=== PATIENT | female | born 1985 | race Caucasian/White ===

== ENCOUNTER 2024-06-25 09:37 | Emergency (ER) | payer OTHER ==
[~2024-06-25] VITALS: Ht 160 cm; Wt 56.6 kg
[~2024-06-25 09:37] MED LIST: FIBER500 MG PO; PRENATAL VITAM1 EAC2 PO
--- OUTSIDE RECORDS SUMMARY | 2024-06-25 09:44 | XMS ---
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 - Patient eloped before treatment completed. - Patient with suicidal and/or homicidal ideations eloped. Details: Patient LWOB. CRITERIA MET - Group Notification CARE PROVIDERS -, [facility] Dentist: Medical Office Assistant Instructor [facility] PHONE: [phone] -[place]- Dentist: Medical Office Assistant Instructor [facility] PHONE: [phone] MARISABEL RODRIGUEZ Current PHONE: [phone] Rolando has no Care Guidelines for this patient. Dung VISIT COUNT (12 MO.) 1 MIKIE Marquez TOTAL 1 NOTE: Visits indicate total known visits. ED/UCC VISIT TRACKING (12 MO.) 06/25/2024 09:38 [facility] [place] TYPE: Emergency COMPLAINT: - VOMITING INPATIENT VISIT TRACKING (12 MO.) No inpatient visits to display in this time frame [email or web address]
[2024-06-25] MEDS ORDERED: SODIUM CHLORIDE 0.9% 1,000 ML IV PRN (09:45)
[2024-06-25] MEDS ORDERED: PANTOPRAZOLE SODIUM 40 MG/10 ML VIAL IV ONE (10:00)
[2024-06-25] MEDS ORDERED: LIDOCAINE & ANTACID 35 ML BTL PO ONE (10:00)
[2024-06-25] MEDS ORDERED: ondansetron HCL 4 MG/2 ML VIAL IV ONE (10:00)
[2024-06-25 10:22] LABS: BASOPHILS 0.3 % (0-2); HEMATOCRIT 32.5 % (35.0-50.0); HEMOGLOBIN 11.4 g/dL (12.0-18.0); LYMPHOCYTES 14.4 % (24-44); MCH 29.6 (27-36); MCV 84.5 fl (81-99); NEUTROPHILS 77.3 % (39-80); PLATELET COUNT 310 K/uL (140-440); RBC 3.84 M/ul (4.3-5.7); RDW 13.8 (10.5-15.0)
[2024-06-25 10:43] LABS: ALBUMIN 3.3 g/dL (3.4-5.0); ALBUMIN/GLOBULIN RATIO 0.8 (1.1-2.4); ANION GAP 16.5 (7-21); BILIRUBIN, TOTAL 0.9 ng/dL (0.2-1.0); CALCIUM 10.2 mg/dL (8.5-10.1); CREATININE, SERUM 0.5 mg/dL (0.55-1.02); MAGNESIUM 1.5 mg/dL (1.8-2.4); POTASSIUM 3.5 mmol/L (3.5-5.1); PROTEIN, TOTAL 7.4 g/dL (6.4-8.2)
[2024-06-25 10:48] LABS: LACTIC ACID, BLOOD 0.7 mmol/L (0.4-2.0)
[2024-06-25] MEDS ORDERED: ASPIRIN 81 MG CHEW PO ONE (11:00)
[2024-06-25] MEDS ORDERED: HEPARIN SOD,PORK IN 0.45% NACL 500 ML IV SCH (11:15)
[2024-06-25] MEDS ORDERED: HEParin SOD (PORCINE) 5,000 UNIT/ML VIAL IV ONE (11:15)
[2024-06-25 11:28] LABS: PARTIAL THROMBOPLASTIN TIME 27.1 Sec (22.9-41.3)
[2024-06-25 11:29] LABS: INR 1.05 (0.80-1.30)
[2024-06-25] MEDS ORDERED: PROPRANOLOL 1 MG/ML IV ONE (11:45)
[2024-06-25] MEDS ORDERED: METOCLOPRAMIDE HCL 10 MG/2 ML SDV IV ONE (12:15)
[2024-06-25] MEDS ORDERED: ESMOLOL HCL 100 MG/10 ML VIAL IV ONE ×2 (14:45→15:00)
[2024-06-25] MEDS ORDERED: HYDROCORTISONE SOD SUCCINATE 100 MG/2 ML VIAL IV ONE (14:45)
[2024-06-25] MEDS ORDERED: ESMOLOL HCL 250 ML IV SCH (14:45)
[2024-06-25] MEDS ORDERED: propylthiouraciL 50 MG TAB PO ONE (15:00)
[2024-06-25] MEDS ORDERED: droPERidol 5 MG/2 ML VIAL IV ONE (15:30)
[2024-06-25 18:58] VITALS: BP 139/72
[2024-06-26 20:34] LABS: TRIIODOTHYRONINE,FREE FREE T3 31.1 pg/mL (2.5-4.3)
--- NOTE | 2024-06-28 14:36 | EKG ---
[facility] [address] [facility] [place], [place] [address] Signed Sinus tachycardia Nonspecific T wave abnormality Abnormal ECG No previous ECGs available Confirmed by Heather Ruggiero MD ([id number]) on 06/28/2024 2:36:32 PM Electronically Signed By: HEATHER RUGGIERO DO 06/28/24 1436 PATIENT NAME: ALTAGRACIA PERDOMO Electrocardiogram DATE OF : 85 PHYSICIAN: HEATHER RUGGIERO DO REPORT #: [id number] REPORT IS CONFIDENTIAL AND NOT TO BE RELEASED WITHOUT AUTHORIZATION
--- NOTE | 2024-06-28 14:37 | EKG ---
[facility] [address] [facility] [place] [address] Signed Sinus tachycardia Nonspecific T wave abnormality Abnormal ECG When compared with ECG of 25-JUN-2024 10:53, (Unconfirmed) No significant change was found Confirmed by Lalo Ruggiero MD ([id number]) on 06/28/2024 2:37:10 PM Electronically Signed By: LALO RUGGIERO DO 06/28/24 1437 PATIENT NAME: ALTAGRACIA PERDOMO TIARRA Electrocardiogram DATE OF : [birth year] PHYSICIAN: LALO RUGGIERO DO REPORT #: [id number] REPORT IS CONFIDENTIAL AND NOT TO BE RELEASED WITHOUT AUTHORIZATION
--- NOTE | 2024-06-28 14:37 | EKG ---
[facility] [address] [facility] [place] [address] Signed Sinus tachycardia Nonspecific T wave abnormality Abnormal ECG No previous ECGs available Confirmed by Heather Ruggiero MD ([id number]) on 06/28/2024 2:36:47 PM Electronically Signed By: HEATHER RUGGIERO DO 06/28/24 1437 PATIENT NAME: ALTAGRACIA PERDOMO Electrocardiogram DATE OF : [birth year] PHYSICIAN: HEATHER RUGGIERO DO REPORT #: [id number] REPORT IS CONFIDENTIAL AND NOT TO BE RELEASED WITHOUT AUTHORIZATION
== END 2024-06-25 18:58 | disposition short-term general hospital (02) ==
LOC: ED 09:37
PROVIDERS: Emergency Medicine
DX: I21.4 Non-ST elevation (NSTEMI) myocardial infarction (principal); E05.90 Thyrotoxicosis, unspecified without thyrotoxic crisis or storm; D64.9 Anemia, unspecified; Z88.1 Allergy status to other antibiotic agents
CPT/HCPCS: 36415; 71046; 80053; 83605; 83690; 83735; 83880; 84439; 84443; 84481; 84484; 84703; 85025; 85610; 85730; 93005; 93010; 96361; 96374; 96375; 99285-25; A9270; J1644; J1720; J1790; J1800; J2405; J2470; J2765; J7030; U0002

== ENCOUNTER 2024-11-18 13:08 | Emergency (ER) | payer OTHER ==
[~2024-11-18] VITALS: Ht 160 cm; Wt 68.3 kg
--- OUTSIDE RECORDS SUMMARY | 2024-11-18 13:14 | XMS ---
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 Dung VISIT COUNT (12 MO.) 2 MIKIE Marquez TOTAL 2 NOTE: Visits indicate total known visits. ED/UCC VISIT TRACKING (12 MO.) 11/18/2024 13:08 MIKIE Segovia TYPE: Emergency COMPLAINT: - HEADACHE 06/25/2024 09:38 [facility] [place] TYPE: Emergency COMPLAINT: - VOMITING DIAGNOSES: - Allergy status to other antibiotic agents - Anemia, unspecified - Non-ST elevation (NSTEMI) myocardial infarction - Other chest pain - Thyrotoxicosis, unspecified without thyrotoxic crisis or storm INPATIENT VISIT TRACKING (12 MO.) 06/25/2024 22:09 [facility] TYPE: General Medicine DIAGNOSES: 44417. Thyrotoxicosis, unspecified with thyrotoxic crisis or storm 02273. Thyroid storm/NSTEMI 77525. Thyrotoxicosis, unspecified with thyrotoxic crisis or storm - Thyrotoxicosis, unspecified with thyrotoxic crisis or storm [email or web address]
[2024-11-18 13:49] LABS: BASOPHILS 0.9 % (0-2); EOSINOPHILS 2.4 % (0-6); HEMATOCRIT 39.7 % (35.0-50.0); HEMOGLOBIN 13.6 g/dL (12.0-18.0); LYMPHOCYTES 29.7 % (24-44); MCH 31.4 (27-36); MCHC 34.3 g/dl (30-36); MCV 91.5 fl (81-99); MONOCYTES 11.8 % (0-12); NEUTROPHILS 55.2 % (39-80); PLATELET COUNT 251 K/uL (140-440); RBC 4.33 M/ul (4.3-5.7); RDW 14.4 (10.5-15.0)
[2024-11-18 14:08] LABS: ALBUMIN 4.1 g/dL (3.4-5.0); ALBUMIN/GLOBULIN RATIO 1.28 (1.1-2.4); ANION GAP 16.4 (7-21); BILIRUBIN, TOTAL 0.2 mg/dL (0.2-1.0); BUN/CREATININE RATIO 15.87 (6.0-28.6); CALCIUM 8.7 mg/dL (8.5-10.1); CREATININE, SERUM 0.63 mg/dL (0.55-1.02); POTASSIUM 4.4 mmol/L (3.5-5.1); PROTEIN, TOTAL 7.3 g/dL (6.4-8.2); TSH, 3RD GENERATION 0.181 uIU/mL (0.358-3.740)
[2024-11-18] MEDS ORDERED: METOCLOPRAMIDE HCL 10 MG/2 ML SDV IV ONE (14:15)
[2024-11-18] MEDS ORDERED: KETOROLAC TROMETHAMINE 15 MG/ML VIAL IV ONE (14:15)
[2024-11-18] MEDS ORDERED: REGLAN10 MG PO (14:55)
[2024-11-18 15:05] VITALS: BP 100/67
[2024-11-18] MEDS ORDERED: PROPRANOLOL HCL20 MG PO (15:05)
[2024-11-18] MEDS ORDERED: METHIMAZOLE10 MG PO (15:05)
--- NOTE | 2024-11-19 22:33 | EKG ---
[facility] [address] [place] [address] Signed Sinus bradycardia Otherwise normal ECG When compared with ECG of 25-JUN-2024 14:11, Vent. rate has decreased BY 77 BPM T wave inversion no longer evident in Inferior leads Nonspecific T wave abnormality no longer evident in Lateral leads Confirmed by Kirsten Leigh MD () on 11/19/2024 10:33:00 PM Electronically Signed By: KIRSTEN LEIGH MD 11/19/242232 PATIENT NAME: ALTAGRACIA PERDOMO Electrocardiogram DATE OF : [birth year] PHYSICIAN: KIRSTEN LEIGH MD REPORT #: [id number] REPORT IS CONFIDENTIAL AND NOT TO BE RELEASED WITHOUT AUTHORIZATION
== END 2024-11-18 15:07 | disposition home or self-care (01) ==
LOC: ED 13:08
PROVIDERS: Emergency Medicine
DX: R51.9 Headache, unspecified (principal); E05.90 Thyrotoxicosis, unspecified without thyrotoxic crisis or storm
CPT/HCPCS: 36415; 80053; 84443; 84484; 85025; 93005; 93010; 96374; 96375; 99283-25; J1885; J2765

== ENCOUNTER 2025-02-28 05:54 | Emergency (ER) | payer OTHER ==
[~2025-02-28] VITALS: Ht 160 cm; Wt 67.2 kg
[~2025-02-28 05:54] MED LIST changes: +METHIMAZOLE10 MG PO; +PROPRANOLOL HCL20 MG PO; +REGLAN10 MG PO
--- OUTSIDE RECORDS SUMMARY | 2025-02-28 06:01 | XMS ---
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 Dung VISIT COUNT (12 MO.) 3 MIKIE Marquez TOTAL 3 NOTE: Visits indicate total known visits. ED/UCC VISIT TRACKING (12 MO.) 02/28/2025 05:55 [facility] TYPE: Emergency COMPLAINT: - ABNORMAL LAB RESULTS 11/18/2024 13:08 [facility] TYPE: Emergency COMPLAINT: - HEADACHE DIAGNOSES: - Headache, unspecified - Thyrotoxicosis, unspecified without thyrotoxic crisis or storm 06/25/2024 09:38 [facility] TYPE: Emergency COMPLAINT: - VOMITING DIAGNOSES: - Allergy status to other antibiotic agents - Anemia, unspecified - Non-ST elevation (NSTEMI) myocardial infarction - Other chest pain - Thyrotoxicosis, unspecified without thyrotoxic crisis or storm INPATIENT VISIT TRACKING (12 MO.) 06/25/2024 22:09 [facility] TYPE: General Medicine DIAGNOSES: 11424. Thyrotoxicosis, unspecified with thyrotoxic crisis or storm 65090. Thyroid storm/NSTEMI 23906. Thyrotoxicosis, unspecified with thyrotoxic crisis or storm - Thyrotoxicosis, unspecified with thyrotoxic crisis or storm [email or web address]
[2025-02-28 06:23] LABS: BASOPHILS 0.2 % (0.1-1.2); EOSINOPHILS 2.5 % (0.7-5.8); LYMPHOCYTES 30.3 % (19.3-51.7); MCH 28.5 PG (25.6-32.2); MCHC 33.4 g/dL (32.2-35.5); MCV 85.4 fL (79.4-94.8); MONOCYTES 14.5 % (4.7-12.5); NEUTROPHILS 52.3 % (34.0-71.1); RBC 4.24 M/uL (3.93-5.22)
[2025-02-28 06:57] LABS: ALT (SGPT) 43.0 U/L (14-59); AST (SGOT) 19.0 U/L (15-37); GLOMERULAR FILTRATION RATE,EST 124.0 mL/min (>60); PROTEIN, TOTAL 6.9 g/dL (6.4-8.2); UREA NITROGEN 10.0 mg/dL (7-18)
[2025-02-28 07:21] VITALS: BP 118/58
[2025-02-28 07:38] LABS: BLOOD/HGB, URINE NEGATIVE (Negative); KETONE, URINE NEGATIVE (Negative); LEUK ESTERASE, URINE NEGATIVE (negative); NITRITE, URINE NEGATIVE (negative)
[2025-02-28 07:44] LABS: EPITHELIAL CELLS, URINE SQUAMOUS 1+ /lpf (0-1+)
[2025-02-28 07:45] LABS: BACTERIA, URINE NONE SEEN /hpf (negative); CASTS, URINE NONE SEEN \\lpf; CRYSTALS, URINE NONE SEEN (0-1+); REFLEX CULTURE, URINE No (No)
--- NOTE | 2025-03-02 09:58 | EKG ---
[facility] [address] [place] [address] Signed Normal sinus rhythm Normal ECG When compared with ECG of 18-NOV-2024 14:14, Vent. rate has increased BY 35 BPM QT has lengthened Confirmed by John Carter MD ([id number]) on 03/02/2025 9:58:27 AM Electronically Signed By: JOHN CARTER MD 03/02/25 0958 PATIENT NAME: ALTAGRACIA PERDOMO Electrocardiogram DATE OF : [birth year] PHYSICIAN: JOHN CARTER MD REPORT #: [id number] REPORT IS CONFIDENTIAL AND NOT TO BE RELEASED WITHOUT AUTHORIZATION
== END 2025-02-28 07:21 | disposition home or self-care (01) ==
LOC: ED 05:54
PROVIDERS: Internal Medicine
DX: R94.4 Abnormal results of kidney function studies (principal); Z88.8 Allergy status to other drugs, medicaments and biological substances; Z79.899 Other long term (current) drug therapy
CPT/HCPCS: 36415; 80053; 81001; 83880; 84484; 84703; 85025; 93005; 93010; 99283

== ENCOUNTER 2025-06-23 06:20 | Emergency (ER) | payer OTHER ==
[~2025-06-23] VITALS: Ht 160 cm; Wt 62.6 kg
--- OUTSIDE RECORDS SUMMARY | 2025-06-23 06:27 | XMS ---
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 EAntonio VISIT COUNT (12 MO.) Andi Marquez TOTAL 4 NOTE: Visits indicate total known visits. ED/UCC VISIT TRACKING (12 MO.) 06/23/2025 06:20 [facility] TYPE: Emergency COMPLAINT: - VOMITING 02/28/2025 05:55 [facility] TYPE: Emergency COMPLAINT: - ABNORMAL LAB RESULTS DIAGNOSES: - Abnormal results of kidney function studies - Allergy status to other antibiotic agents - Allergy status to other drugs, medicaments and biological substances - Cardiac murmur, unspecified - Other mcfp (current) drug therapy - Tachycardia, unspecified 11/18/2024 13:08 [facility] [place] TYPE: Emergency [...] INPATIENT VISIT TRACKING (12 MO.) 06/25/2024 22:09 [facility] TYPE: General Medicine DIAGNOSES: 42530. Thyrotoxicosis, unspecified with thyrotoxic crisis or storm 61934. Thyroid storm/NSTEMI 29353. Thyrotoxicosis, unspecified with thyrotoxic crisis or storm - Thyrotoxicosis, unspecified with thyrotoxic crisis or storm [email or web address]
[2025-06-23] MEDS ORDERED: SODIUM CHLORIDE 0.9% 1,000 ML IV SCH (06:45)
[2025-06-23 06:56] LABS: BASOPHILS 0.3 % (0.1-1.2); EOSINOPHILS 0.2 % (0.7-5.8); LYMPHOCYTES 3.3 % (19.3-51.7); MCH 28.0 PG (25.6-32.2); MCHC 34.0 g/dL (32.2-35.5); MCV 82.5 fL (79.4-94.8); MONOCYTES 5.6 % (4.7-12.5); NEUTROPHILS 90.3 % (34.0-71.1); RBC 5.10 M/uL (3.93-5.22)
[2025-06-23 07:03] LABS: ALT (SGPT) 45 U/L (14-59); AST (SGOT) 29 U/L (15-37); GLOMERULAR FILTRATION RATE,EST 132 mL/min (>60); PROTEIN, TOTAL 7.7 g/dL (6.4-8.2); TSH, 3RD GENERATION <0.007 uIU/mL (0.358-3.740); UREA NITROGEN 11 mg/dL (7-18)
[2025-06-23] MEDS ORDERED: DIPHENOXYLATE/ATROPINE 1 EA TAB PO ONE (07:15)
[2025-06-23] MEDS ORDERED: PROPRANOLOL HCL 20 MG TAB PO ONE (07:30)
[2025-06-23 08:00] LABS: BLOOD/HGB, URINE NEGATIVE (Negative); KETONE, URINE >=80 (Negative); LEUK ESTERASE, URINE NEGATIVE (negative); NITRITE, URINE NEGATIVE (negative)
[2025-06-23] MEDS ORDERED: ONDANSETRON ODT8 MG PO (08:14)
[2025-06-23 08:45] VITALS: BP 110/60
[2025-06-24 20:19] LABS: TRIIODOTHYRONINE,FREE FREE T3 18.4 pg/mL (2.5-4.3)
== END 2025-06-23 08:46 | disposition home or self-care (01) ==
LOC: ED 06:20
PROVIDERS: Emergency Medicine
DX: E05.90 Thyrotoxicosis, unspecified without thyrotoxic crisis or storm (principal); K52.9 Noninfective gastroenteritis and colitis, unspecified; Z79.899 Other long term (current) drug therapy
CPT/HCPCS: 36415; 80053; 81003; 84439; 84443; 84481; 84703; 85025; 96361; 96374; 99283-25; J2405; J7030